=== PATIENT | male | born 1995 | race Two or more races ===

== ENCOUNTER 2025-11-02 09:50 | Inpatient (IN) | payer OTHER ==
[~2025-11-02] VITALS: Ht 177.8 cm; Wt 94.5 kg
[2025-11-02 10:46] VITALS: PULSE 130; RESP 15; O2SAT 95
--- NOTE | 2025-11-02 10:58 | ED.PDOC ---
Eye-HPI HPI Comments 30 y.o male presents to the ED for a chief complaint of a sore throat associated with SOB and hemoptysis that started last night. Patient woke up this morning with worsening SOB. He denies any difficulty swallowing, nausea, vomiting, or chills. He presents with a fever of 101 upon ED arrival. Chief Complaint: Sore Throat Time Seen by MD: 10:36 Reviewed Notes: Nurses Notes, Medications, Allergies Allergies: Coded Allergies: NO KNOWN ALLERGIES (Unverified , 11/02/25) Information Source: Patient Mode of Arrival: Ambulatory Timing: Days (1) Duration: Since onset Quality: Pain, Red Mouth: Swelling, Red Associated signs and symptoms: Sore Throat Past Medical History PAST MEDICAL HISTORY: Denies Surgical History: Denies all surgeries Family History Family History: Reviewed,noncontributory to illness, No family hx of Cancer, No family hx of DM, No family hx of Heart naresh, No family hx of HTN, No family hx ofKidney naresh, No family hx of Liver naresh, No family hx of Lung naresh, No family hx of Stroke Social History Smoker: Non-Smoker Alcohol: Denies ETOH Use Drugs: Denies Drug Use Lives In: Home Constitutional: denies: chills, diaphoresis, fatigue, fever, malaise, sweats, weakness, others EENTM: reports: throat pain; denies: blurred vision, double vision, ear bleeding, ear discharge, ear drainage, ear pain, ear ringing, eye pain, eye redness, hearing loss, mouth pain, mouth swelling, nasal discharge, nose bleeding, nose congestion, nose pain, photophobia, tearing, throat swelling, voice changes, others Respiratory: reports: hemoptysis, SOB at rest, shortness of breath, SOB with excertion; denies: cough, orthopnea, stridor, wheezing, others Cardiovascular: denies: chest pain, dizzy spells, diaphoresis, Dyspnea on exertion, edema, irregular heart beat, left arm pain, lightheadedness, palpitations, PND, syncope, others Gastrointestinal: denies: abdomen distended, abdominal pain, blood streaked bowels, constipated, diarrhea, dysphagia, difficulty swallowing, hematemesis, melena, nausea, poor appetite, poor fluid intake, rectal bleeding, rectal pain, vomiting, others Genitourinary: denies: burning, dysuria, flank pain, frequency, hematuria, incontinence, penile discharge, penile sore, pain, testicle pain, testicle swelling, urgency, others Neurological: denies: dizziness, fainting, headache, left sided numbness, left sided weakness, numbness, paresthesia, pre-existing deficit, right sided numbness, right sided weakness, seizure, speech problems, tingling, tremors, weakness, others Musculoskeletal: denies: back pain, gout, joint pain, joint swelling, muscle pain, muscle stiffness, neck pain, others Integumetry: denies: bruises, change in color, change in hair/nails, dryness, laceration, lesions, lumps, rash, wounds, others Allergic/Immunocompromised: denies: Difficulty Healing, Frequent Infections, Hives, Itching, others Hematologic/Lymphatic: denies: anemia, blood clots, easy bleeding, easy bruising, swollen glands, others Endocrine: denies: excessive hunger, excessive sweating, excessive thirst, excessive urination, flushing, intolerance to cold, intolerance to heat, unexplained weight gain, unexplained weight loss, others Psychiatric: denies: anxiety, bipolar disorder, depression, hopeless, panic disorder, schizophrenia, sleepless, suicidal, others All Other Systems: Reviewed and Negative Physical Exam General Appearance: Moderate Distress HEENT: Pharyngeal Erythema, Tonsillar Exudate Neck: Full Range of Motion, Non-Tender, Normal, Normal Inspection Respiratory: Chest Non-Tender, Lungs Clear, No Accessory Muscle Use, No Respiratory Distress, Normal Breath Sounds Cardiovascular: Tachycardia Breast Exam: Deferred Gastrointestinal: No Organomegaly, Non Tender, No Pulsatile Mass, Normal Bowel Sounds, Soft Genitalia: Deferred Pelvic: Deferred Rectal: Deferred Extremities: No calf tenderness, Normal capillary refill, Normal inspection, Normal range of motion, Non-tender, No pedal edema Musculoskeletal : Apperance: Normal Neurologic: Alert, 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 Was a procedure done?: No EENT DIFF Eye: N/A Sore Throat: Fab's Angina, Peritonsillar Abscess, Peritonsillar Cellulitis, Pharyngitis, Streptococcal, Viral Pharyngitis X-Ray, Labs, Meds, VS Vital Signs Date Time Temp Pulse Resp B/P (MAP) Pulse Ox O2 Delivery O2 Flow Rate FiO2 11/02/25 10:46 130 15 95 Nasal Cannula* 2 28 11/02/25 10:43 99.5 130 15 129/74 (92) 95 99.5 11/02/25 09:51 101.2 134 20 145/92 94 101.2 Lab Test 11/02/25 10:41 Range/Units White Blood Count 20.4 H 4.4-10.8 10^3/uL Red Blood Count 5.13 4.5-5.90 10^6/uL Hemoglobin 14.5 13.5-17.5 g/dL Hematocrit 43.1 41.0-53.0 % Mean Corpuscular Volume 84.0 80.0-100.0 fL Mean Corpuscular Hemoglobin 28.3 28.0-32.0 pg Mean Corpuscular Hemoglobin Concent 33.7 32.0-36.0 g/dL Red Cell Distribution Width 14.0 11.8-14.3 % Platelet Count 316 140-450 10^3/uL Mean Platelet Volume 8.4 6.9-10.8 fL Neutrophils (%) (Auto) 85.9 H 37.0-80.0 % Lymphocytes (%) (Auto) 6.7 L 10.0-50.0 % Monocytes (%) (Auto) 6.9 0.0-12.0 % Eosinophils (%) (Auto) 0.4 0.0-7.0 % Basophils (%) (Auto) 0.1 0.0-2.0 % Neutrophils # (Auto) 17.5 H 1.6-8.6 10 ^3/uL Lymphocytes # (Auto) 1.4 0.4-5.4 10 ^3/uL Monocytes # (Auto) 1.4 H 0-1.3 10 ^3/uL Eosinophils # (Auto) 0.1 0-0.8 10 ^3/uL Basophils # (Auto) 0 0-0.2 10 ^3/uL Nucleated Red Blood Cells 0.0 % Lactic Acid Level 1.5 0.4-2.0 mmol/L Current Medications Medications (Trade) Dose Ordered Sig/Jeannine Route Start Time Stop Time Status Last Admin Sodium Chloride 1,000 ml @ 1,000 mls/hr Q1H ONCE IV 11/02/25 11:00 11/02/25 11:59 11/02/25 11:16 Patient alert. Came in because of sore throat. On examination tonsils enlarged red. Vitals stable. Sepsis protocol. Establish intravenous access. Was given Rocephin. Was given clindamycin. Explained to the patient. Continue monitoring. Time of 1ST Reevaluation: 10:52 Reevaluation 1ST: Unchanged Patient Education/Counseling: Diagnosis, Treatment, Prognosis Family Education/Counseling: No Family Present SEPSIS Sepsis Screen Date sepsis recognized/suspect: Nov 02, 2025 Time Sepsis recognized/suspect: 1037 Recent Procedure: No On Antibiotic Therapy: No Respiratory Rate >20: No Heart Rate >90: Yes Temp<36 C (96.8 F) or >38.3 C: No SBP <90 or MAP <65 mmHG: No New Acute Mental Status Change: No Is the patient on CPAP, BIPAP,: No Physician Orders Rapid Strep Screen - Throat (11/02/25 10:21) Covid19 Antigen Yumiko (11/02/25 ) Rapid Influenza A&B (11/02/25 10:26) Blood Culture (11/02/25 10:41) Sepsis Initial Assessment ONCE (11/02/25 10:41) Sepsis Reassessment After Flui (11/02/25 10:42) Initiate Sepsis Protocol (11/02/25 10:41) Clindamycin 600mg Iv (Cleocin Iv) (11/02/25 11:00) Sodium Chloride 0.9% (11/02/25 11:00) Sodium Chloride 0.9% (11/02/25 11:00) Comprehensive Metabolic Panel (11/02/25 10:59) Chest Portable (11/02/25 11:42) Basic Metabolic Panel (11/02/25 11:44) Vital Signs Date Time Temp Pulse Resp B/P (MAP) Pulse Ox O2 Delivery O2 Flow Rate FiO2 11/02/25 10:46 130 15 95 Nasal Cannula* 2 28 11/02/25 10:43 99.5 130 15 129/74 (92) 95 99.5 11/02/25 09:51 101.2 134 20 145/92 94 101.2 Laboratory Tests Test 11/02/25 10:41 Lactic Acid Level 1.5 mmol/L (0.4-2.0) White Blood Count 20.4 10^3/uL (4.4-10.8) H Medications Medications Dose Ordered Sig/Jeannine Route Start Time Stop Time Status Last Admin Dose Admin Sodium Chloride 1,000 ml @ 1,000 mls/hr Q1H ONCE IV 11/02/25 11:00 11/02/25 11:59 11/02/25 11:16 Departure 1 Departure Time of Disposition: 11:55 Impression: Primary Impression: Sepsis, unspecified organism Qualified Codes: A41.9 - Sepsis, unspecified organism Additional Impression: Acute tonsillitis Qualified Codes: J03.90 - Acute tonsillitis, unspecified Disposition: 09 ADMITTED INPATIENT Admit to: Med Surg Condition: Guarded Critical Care Note Critical Care Time?: No Stability Stability form required: No I personally scribed for TERA RUSS MD ([email or web address]) on 11/02/25 at 10:58. Electronically submitted by Laura Burks ([facility]). TERA RUSS MD Nov 02, 2025 10:58
[2025-11-02 11:11] LABS: Hematocrit 43.1 % (41.0-53.0); Hemoglobin 14.5 g/dL (13.5-17.5); Mean Corpuscular Hemoglobin 28.3 pg (28.0-32.0); Mean Corpuscular Volume 84.0 fL (80.0-100.0); Nucleated Red Blood Cells % 0.0 %
[2025-11-02] MEDS: SODIUM CHLORIDE 0.9% 1,000 ML IV ONE ×2 (11:16→14:43)
--- NOTE | 2025-11-02 12:31 | DVH ---
CHEST RADIOGRAPH INDICATION: sob TECHNIQUE: Single frontal view of the chest was obtained COMPARISON: None FINDINGS: Lines and Tubes: None Lungs: No focal consolidation. Pleura: No effusion. No pneumothorax. Cardiomediastinal contours: Unremarkable Bones: No acute osseous abnormality. IMPRESSION: 1. No acute cardiopulmonary disease.
[2025-11-02 12:38] LABS: Alanine Aminotransferase 59 U/L (7-40); Albumin 4.6 g/dL (3.2-4.8); Alkaline Phosphatase 151 U/L (46-116); Anion Gap 12 (5-15); BUN/Creatinine Ratio 16.7 (10.0-20.0); Bilirubin, Total 0.4 mg/dL (0.2-1.0); Blood Urea Nitrogen 13 mg/dL (9-23); Calcium 9.5 mg/dL (8.7-10.4); Carbon Dioxide 25 mmol/L (20-31); Chloride 102 mmol/L (98-107); Glucose 114 mg/dL (74-106); Potassium 4.2 mmol/L (3.5-5.1); Sodium 139 mmol/L (136-145); Total Protein 7.5 g/dL (5.7-8.2)
[2025-11-02 13:09] LABS: COVID19 ANTIGEN SOFIA FIA POSITIVE (NEGATIVE)
[2025-11-02 13:13] LABS: Rapid Strep A Screen-Throat Positive
--- NOTE | 2025-11-02 13:44 | DVH ---
Accession Number: [id number] CLINICAL HISTORY: Rule out retropharyngeal abscess COMPARISON: None TECHNIQUE: After the intravenous administration of intravenous contrast, multi- slice CT scan of the neck was performed without complication. Radiation Dose Information: CT Dose: CTDI volume is 26.5 mGy. Dose-length product is 1.78 mGy*cm FINDINGS: The glottis is closed limiting evaluation. There is prominence of the palatine tonsils with palatine tonsils contacting medially. No peritonsillar abscess is noted. Retropharyngeal abscess is noted. The remainder of the nasopharynx, oropharynx, hypopharynx, and larynx are unremarkable. Nonspecific mild wall thickening of the proximal esophagus. Bilaterally, the parotid, submandibular, and sublingual glands are normal in their size, shape, and attenuation without evidence of calcification. The visualized oral tongue, tongue base, and floor of mouth regions demonstrate no obvious mass or abnormal enhancement. Prominent level 2/3 lymph nodes which are most likely reactive. The thyroid gland is normal in size, shape, and attenuation without evidence of calcification. IMPRESSION: Prominence of the palatine tonsils with contact of the palatine tonsils medially. Correlate for tonsillitis. No peritonsillar abscess is noted. Prominent cervical lymph nodes which are most likely reactive.
[2025-11-02] MEDS ORDERED: REMDESIVIR PER PHARMACY 0 ML IV SCH ×2 (14:00→14:15)
[2025-11-02] MEDS: SODIUM CHLORIDE 0.9% 1,000 ML IV SCH (14:00)
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
[2025-11-02] MEDS ORDERED: ACETAMINOPHEN 325 MG TAB PO PRN (14:15)
[2025-11-02 14:33] LABS: Base Excess 0.8 mmol/L (-2.0-3.0)
[2025-11-02] MEDS: ACETAMINOPHEN 325 MG TAB PO ONE (14:45)
[2025-11-02 14:47] LABS: Magnesium 1.9 mg/dL (1.6-2.6); Triglycerides 145.0 mg/dL (< 150)
[2025-11-02 14:49] LABS: Cholesterol 198.0 mg/dL (< 200)
[2025-11-02 14:50] LABS: HDL Cholesterol 39.0 mg/dL (40-59)
[2025-11-02] MEDS: PENICILLIN V POTASSIUM 250 MG TAB PO SCH (16:00)
[2025-11-02] MEDS: CLINDAMYCIN 600MG IV 50 ML IV ONE (16:00)
[2025-11-02] MEDS: MORPHINE SULFATE 4 MG/ML SYR/VIAL IV PRN (17:14)
[2025-11-02] MEDS: ONDANSETRON HCL 4 MG/2 ML VIAL IV PRN (17:15)
[2025-11-02] MEDS: REMDESIVIR 200mg in NS 210mL LOADING DOSE ADULT IV ONE (17:23)
[2025-11-02 18:14] VITALS: PULSE 108; RESP 24; O2SAT 97
[2025-11-02] MEDS ORDERED: DEXTROSE (50%) 50ML SYRG IV PRN ×2 (20:15→21:00)
[2025-11-02 22:30] VITALS: BP 117/70; PULSE 97; RESP 18; TEMP 100.1; O2SAT 98
[2025-11-02] MEDS: InsuLIN REG 1unit/0.01ml Soln (100units/ml) SC SCH (23:52)
[2025-11-02] MEDS: ACCU-CHEK COMFORT CURVE STRIP VI SCH (23:52)
[2025-11-03] VITALS (9 sets, daily range): BP systolic 112–136; BP diastolic 62–84; PULSE 70–114; RESP 17–20; TEMP 97.6–98.5; O2SAT 91–98
[2025-11-03] MEDS ORDERED: ACCU-CHEK COMFORT CURVE STRIP VI SCH
[2025-11-03] MEDS ORDERED: InsuLIN REG 1unit/0.01ml Soln (100units/ml) SC SCH
--- NOTE | 2025-11-03 02:44 | DVHSR ---
APPROVED REPORT EXAM: LIMITED Two-dimensional and M-mode echocardiogram with Doppler and color Doppler. Blood Pressure: 129/74 mmHg INDICATION Sepsis RISK FACTORS Height: 5' 10", Weight: 209 DIMENSIONS LVDd 4.4 (3.8-5.7cm) LA (2D) 4.0 (1.9-4.0cm) Aortic Root 3.0 (2.0-3.7cm) LVDs 3.1 (2.5-4.0cm) LA (MM) (1.9-4.0cm) Aortic Cusp Exc 1.7 (1.5-2.0cm) EF (%) 58.0 (55-70%) Rt. Atrium 3.9 (1.9-4.0cm) Asc. Aorta cm IVSd 0.8 (0.7-1.1cm) RV (D) (1.8-2.4cm) PWd 0.8 (0.7-1.1cm) Mitral Valve Mitral Mitral Stenosis E wave 0.80m/s MV Mean GR. mmHg A wave 0.80m/s MV Peak GR. mmHg E/A ratio 1.0 2D MVA cm2 Aortic Valve Aortic Valve Aortic Stenosis V1 1.20m/s AO Mean GR. 4mmHg V2 1.30m/s AO Peak GR. 7mmHg LVOT Diameter 2.1 (1.8-2.4cm) Doppler MARCIA 3.20cm2 Pulmonic Valve V2 0.90m/s Other Information Quality : Technically Limited Rhythm : Technically limited study due to body habitus, patient is SOB and sitting up. Conclusion MODERATELY DILATED RV AND RA DYSKINESIS OF IVS LV EF IS 65% NORMAL VALVES NO EFFUSION
[2025-11-03 07:27] LABS: Hematocrit 40.2 % (41.0-53.0); Hemoglobin 13.5 g/dL (13.5-17.5); Mean Corpuscular Hemoglobin 28.3 pg (28.0-32.0); Mean Corpuscular Volume 84.3 fL (80.0-100.0); Nucleated Red Blood Cells % 0.0 %
[2025-11-03 07:33] LABS: Albumin 4.2 g/dL (3.2-4.8); Anion Gap 11 (5-15); BUN/Creatinine Ratio 11.1 (10.0-20.0); Bilirubin, Total 0.5 mg/dL (0.2-1.0); Calcium 9.1 mg/dL (8.7-10.4); Carbon Dioxide 27 mmol/L (20-31); Chloride 100 mmol/L (98-107); Glucose 85 mg/dL (74-106); Potassium 3.6 mmol/L (3.5-5.1); Sodium 138 mmol/L (136-145); Total Protein 7.1 g/dL (5.7-8.2)
[2025-11-03 07:40] LABS: Alanine Aminotransferase 45 U/L (7-40); Alkaline Phosphatase 143 U/L (46-116); Blood Urea Nitrogen 8 mg/dL (9-23)
[2025-11-03] MEDS: ENOXAPARIN SOD 40 MG/0.4 ML SYRINGE SC SCH (10:34)
[2025-11-03] MEDS: AMOXICILLIN TRIHYDRATE 250 MG CAP PO SCH ×2 (10:35→21:09)
[2025-11-03] MEDS: REMDESIVIR 100mg in NS 230mL (3 DAY REGIMEN) IV SCH (15:06)
--- NOTE | 2025-11-03 18:32 | DVHPN2 ---
Subjective Clinically stable. Family is bedside. Feeling better. Changes from previous H/P or p: No Changes Objective Vitals Vital Signs Date Time Temp Pulse Resp B/P (MAP) Pulse Ox O2 Delivery O2 Flow Rate FiO2 11/03/25 16:55 98.5 93 20 122/84 (97) 92 98.5 11/03/25 08:30 Room Air* 0 21 Intake/Output Intake and Output 11/03/25 06:59 Intake Total 200 ml Balance 200 ml Intake Oral 200 ml # Voids 3 Exam Alert awake oriented to place and person. Comfortable without distress. HEENT neck supple no JVD. Heart regular rate and rhythm. Lungs fair air movement without wheezing. Abdomen soft positive bowel sounds nontender, extremities no edema positive pulses. Medications Current Medications Medications Dose Ordered Sig/Jeannine Route Start Time Stop Time Status Last Admin Dose Admin Sodium Chloride 1,000 ml @ 100 mls/hr Q10H IV 11/02/25 14:00 11/03/25 13:27 100 MLS/HR Acetaminophen 325 mg Q4HP PRN PO 11/02/25 14:15 Ondansetron HCl 4 mg Q4HP PRN IV 11/02/25 14:15 11/02/25 17:15 4 MG Morphine Sulfate 2 mg Q4HPRN PRN IV 11/02/25 14:30 11/02/25 17:14 2 MG Enoxaparin Sodium 40 mg DAILY SC 11/03/25 10:00 11/03/25 10:34 40 MG Remdesivir 0 ml @ 0 mls/hr PER PHARMACY IV 11/02/25 14:15 11/04/25 14:01 Remdesivir 100 mg/ Sodium Chloride 250 ml @ 250 mls/hr DAILY@1500 IV 11/03/25 15:00 11/04/25 15:59 11/03/25 15:06 250 MLS/HR Amoxicillin 500 mg BID PO 11/03/25 10:00 11/03/25 10:35 500 MG Laboratory Results Laboratory Tests 11/03/25 05:00 Chemistry Test 11/03/25 05:00 Albumin 4.2 g/dL (3.2-4.8) Calcium Level 9.1 mg/dL (8.7-10.4) Total Protein 7.1 g/dL (5.7-8.2) LFT Test 11/03/25 05:00 Alanine Aminotransferase (ALT) 45 U/L (7-40) H Alkaline Phosphatase 143 U/L (46-116) H Aspartate Amino Transferase (AST) 21 U/L (13-40) Total Bilirubin 0.5 mg/dL (0.2-1.0) Microbiology Microbiology Date/Time Source Procedure Growth Status 11/02/25 10:41 Blood Blood Culture - Preliminary NO GROWTH AFTER 24 HOURS OF INCUBATION. Resulted Labs and/or images reviewed: Labs reviewed by me Assessment/Plan Assessment/Plan Continue oral antibiotic and remdesivir. We will have Infectious Disease consultation. Follow the leukocytosis. Otherwise continue rest of supportive care and treatment. DVT GI prophylaxis. Further clinical management per clinical course. Discussed with the patient/family and nurse at bedside regarding care plan. Plan discussed with: Son, Other My Orders Orders - KRISTEL ARCINIEGA MD Procedure Category Date Status Time Regular Diet DIET 11/03/25 Transmitted Dinner * Infectious [facility]- Dr. CONS 11/03/25 Transmitted K Tom 18:30 Complete Blood Count LAB 11/04/25 Verified 04:00 Problem List: (1) COVID-19 virus infection (2) Acute tonsillitis Date of Service: Nov 03, 2025 Billing Provider: KRISTEL ARCINIEGA MD Common Visit Codes: [id number] INP/OBS CARE(MOD) KRISTEL ARCINIEGA MD Nov 03, 2025 18:32
[2025-11-04] VITALS (8 sets, daily range): BP systolic 103–124; BP diastolic 53–82; PULSE 57–77; RESP 16–20; TEMP 97.3–98.4; O2SAT 93–96
[2025-11-04 07:09] LABS: Hematocrit 40.1 % (41.0-53.0); Hemoglobin 13.7 g/dL (13.5-17.5); Mean Corpuscular Hemoglobin 29.0 pg (28.0-32.0); Mean Corpuscular Volume 84.7 fL (80.0-100.0); Nucleated Red Blood Cells % 0.0 %
[2025-11-04] MEDS ORDERED: HYDROmorphone HCL 2 MG/ML VL/or syr IV PRN (09:45)
[2025-11-04] MEDS ORDERED: MORPHINE SULFATE 4 MG/ML SYR/VIAL IV PRN (09:45)
[2025-11-04 14:20] LABS: Hepatitis B Surface Antigen Negative (Negative)
[2025-11-04 14:35] LABS: Hepatitis C Antibody Negative (Negative)
--- NOTE | 2025-11-04 16:41 | DVHPN2 ---
Subjective Patient is complaining of sore throat. Currently on remdesivir. 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 Medications Current Medications Medications Dose Ordered Sig/Jeannine Route Start Time Stop Time Status Last Admin Dose Admin Sodium Chloride 1,000 ml @ 100 mls/hr Q10H IV 11/02/25 14:00 11/03/25 13:27 100 MLS/HR Acetaminophen 325 mg Q4HP PRN PO 11/02/25 14:15 Ondansetron HCl 4 mg Q4HP PRN IV 11/02/25 14:15 11/02/25 17:15 4 MG Enoxaparin Sodium 40 mg DAILY SC 11/03/25 10:00 11/04/25 10:00 40 MG Amoxicillin 500 mg BID PO 11/03/25 22:00 11/04/25 10:00 500 MG Morphine Sulfate 2 mg Q4HPRN PRN IV 11/04/25 09:45 Laboratory Results Laboratory Tests 11/03/25 05:00 11/04/25 06:25 Microbiology Microbiology Date/Time Source Procedure Growth Status 11/02/25 10:41 Blood Blood Culture - Preliminary NO GROWTH AFTER 48 HOURS OF INCUBATION. Resulted Assessment/Plan Assessment/Plan 30-year-old young male with a no significant past medical history presented to the hospital with a sore throat found to have 1. Sepsis secondary to COVID-19 pneumonia as well as streptococcal pharyngitis 2. COVID-19 pneumonia currently on remdesivir day three 3. Streptococcal pharyngitis 4. Morbid obesity classI -continue remdesivir continue IV antibiotics discharge plan. Plan discussed with: Patient Problem List: (1) Sepsis, unspecified organism (2) COVID-19 virus infection Date of Service: Nov 04, 2025 Billing Provider: MOJGAN HAM MD Common Visit Codes: [id number] INP/OBS CARE(HIGH) MOJGAN HAM MD Nov 04, 2025 16:41
--- NOTE | 2025-11-04 23:24 | DVHINCON2 ---
Date of service: Nov 04, 2025 Family History: Patient reports no known family medical history. Allergies: Coded Allergies: NO KNOWN ALLERGIES (Unverified , 11/02/25) Home Meds No Active Prescriptions or Reported Meds Current Medications Current Medications Medications (Trade) Dose Ordered Sig/Jeannine Route PRN Reason Start Time Stop Time Status Last Admin Hydromorphone HCl (Dilaudid Injection) 0.25 mg Q4HPRN PRN IV SEVERE PAIN (7-10 PAIN SCALE) 11/04/25 09:45 11/04/25 09:40 DC Morphine Sulfate 2 mg Q4HPRN PRN IV SEVERE PAIN (7-10 PAIN SCALE) 11/04/25 09:45 Vital Signs Vital Signs Date Time Temp Pulse Resp B/P (MAP) Pulse Ox O2 Delivery O2 Flow Rate FiO2 11/04/25 21:00 98.4 61 16 110/62 (78) 96 98.4 11/04/25 20:00 Room Air* 0 21 Labs/Diagnostic Data Labs Test 11/04/25 06:25 11/03/25 12:03 11/03/25 05:00 11/02/25 14:24 Range/Units White Blood Count 9.9 # 4.4-10.8 10^3/uL Red Blood Count 4.74 4.5-5.90 10^6/uL Hemoglobin 13.7 13.5-17.5 g/dL Hematocrit 40.1 L 41.0-53.0 % Mean Corpuscular Volume 84.7 80.0-100.0 fL Mean Corpuscular Hemoglobin 29.0 28.0-32.0 pg Mean Corpuscular Hemoglobin Concent 34.3 32.0-36.0 g/dL Red Cell Distribution Width 13.9 11.8-14.3 % Platelet Count 336 140-450 10^3/uL Mean Platelet Volume 8.2 6.9-10.8 fL Neutrophils (%) (Auto) 63.6 37.0-80.0 % Lymphocytes (%) (Auto) 22.4 10.0-50.0 % Monocytes (%) (Auto) 11.3 0.0-12.0 % Eosinophils (%) (Auto) 2.6 0.0-7.0 % Basophils (%) (Auto) 0.1 0.0-2.0 % Neutrophils # (Auto) 6.3 1.6-8.6 10 ^3/uL Lymphocytes # (Auto) 2.2 0.4-5.4 10 ^3/uL Monocytes # (Auto) 1.1 0-1.3 10 ^3/uL Eosinophils # (Auto) 0.3 0-0.8 10 ^3/uL Basophils # (Auto) 0 0-0.2 10 ^3/uL Nucleated Red Blood Cells 0.0 % POC Glucose 104 70-106 mg/dl Sodium Level 138 136-145 mmol/L Potassium Level 3.6 3.5-5.1 mmol/L Chloride Level 100 98-107 mmol/L Carbon Dioxide Level 27 20-31 mmol/L Anion Gap 11 5-15 Blood Urea Nitrogen 8 L 9-23 mg/dL Creatinine 0.72 0.700-1.30 mg/dL Glomerular Filtration Rate Calc 127 >90 mL/min BUN/Creatinine Ratio 11.1 10.0-20.0 Serum Glucose 85 74-106 mg/dL Calcium Level 9.1 8.7-10.4 mg/dL Total Bilirubin 0.5 0.2-1.0 mg/dL Aspartate Amino Transferase (AST) 21 13-40 U/L Alanine Aminotransferase (ALT) 45 H 7-40 U/L Alkaline Phosphatase 143 H 46-116 U/L Total Protein 7.1 5.7-8.2 g/dL Albumin 4.2 3.2-4.8 g/dL Blood Gas Specimen Type Arterial Blood Gas Sample Site Right radial Blood Gas Patient Temperature 37.0 Arterial Blood Date Drawn [id number] Arterial Blood pH 7.394 7.350-7.450 Arterial Blood Partial Pressure CO2 43.5 35.0-48.0 mmHg Arterial Blood Partial Pressure O2 79.3 L 83.0-108.0 mmHg Arterial Blood HCO3 26.0 21.0-28.0 mmol/L Arterial Blood Oxygen Saturation 95.3 94.0-98.0 % Arterial Blood Base Excess 0.8 -2.0-3.0 mmol/L Arterial Blood Oxyhemoglobin 93.2 L 94.0-98.0 % Arterial Blood Carboxyhemoglobin 1.6 H 0.5-1.5 % Arterial Blood Methemoglobin 0.6 0.0-1.5 % Arterial Blood Deoxyhemoglobin 4.6 0.0-5.0 % Ge Test Yes Blood Gas Total Hemoglobin 15.20 13.5-17.5 g/dL Blood Gas Modality Nasal cannula FiO2 % 28.0 Test 11/02/25 14:23 11/02/25 12:12 11/02/25 10:41 Range/Units HIV (1&2) Antibody Negative Negative Influenza Type A Antigen Negative Negative Influenza Type B Antigen Negative Negative SARS-CoV-2 Antigen (Rapid) Positive *A NEGATIVE Group A Streptococcus Rapid Positive Hemoglobin A1c 5.8 H <5.7 % A1C Lactic Acid Level 1.5 0.4-2.0 mmol/L Phosphorus Level 2.7 2.4-5.1 mg/dL Magnesium Level 1.9 1.6-2.6 mg/dL Triglycerides Level 145 < 150 mg/dL Cholesterol Level 198 < 200 mg/dL LDL Cholesterol 144 H < 100 mg/dL HDL Cholesterol 39 L 40-59 mg/dL Vitamin B12 Level 401 211-911 pg/mL Vitamin D 25-Hydroxy 13.1 L 30.0-100 ng/mL Thyroid Stimulating Hormone (TSH) 0.83 0.55-4.78 uIU/mL Treponema pallidum Antibody Non-reactive Negative Hepatitis A IgM Antibody Negative Hepatitis B Surface Antigen Negative Negative Hepatitis B Core IgM Antibody Negative Negative Hepatitis C Antibody Negative Negative Microbiology Date/Time Source Procedure Growth Status 11/02/25 10:41 Blood Blood Culture - Preliminary NO GROWTH AFTER 48 HOURS OF INCUBATION. Resulted Problems(with codes): (1) Acute tonsillitis (2) Sepsis, unspecified organism (3) COVID-19 virus infection Plan/Recommendation ASSESSMENT AND PLAN: ID Problem List: \-- COVID-19 pneumonia \-- Group A streptococcal pharyngitis/tonsillitis \-- Leukocytosis, improving \-- Shortness of breath and hemoptysis Assessment This is a 30 y.o. male with past medical history of ankle surgery after traumatic injury (puncture wound), who presents with sore throat, shortness of breath, dysphagia, and one day of hemoptysis. No chronic primary medical history reported. On presentation he is tachycardic and diaphoretic. Temperature 99.5F, pulse 130, respiratory rate 15, blood pressure 129/74, on 2 L nasal cannula oxygen initially, now doing well on room air. Exam notable for tonsillar exudates with bilaterally enlarged tonsils. Laboratory evaluation shows leukocytosis with WBC 20.4 on admission, improving to 17.0 over the last 24 hours; hemoglobin 14.5, platelets 316. Basic metabolic profile with sodium 139, BUN 13, creatinine 0.78. Lactic acid 1.5. Total bilirubin 0.4, AST 24, ALT 59, alkaline phosphatase 151. Infectious workup: Influenza A and B negative, HIV negative, RPR negative. COVID-19 PCR positive. Group A streptococcal testing positive. Blood cultures with no growth to date. Imaging: CT soft tissue neck with prominence of the palatine tonsils in contact, consistent with tonsillitis without tonsillar abscess; cervical lymph nodes most likely reactive. Chest X-ray shows no acute cardiopulmonary disease. Overall, findings are consistent with COVID-19 pneumonia with superimposed group A streptococcal pharyngotonsillitis, with improving leukocytosis under current therapy. Plan: \-- COVID-19 pneumonia Symptoms have been present for over two weeks and the patient does not meet standard window criteria for COVID-19 therapies such as Paxlovid. However, given the positive antibody, may consider a 5-day course of Paxlovid to treat any residual COVID-19 disease. Continue remdesivir while inpatient. Monitor respiratory status; patient currently doing well on room air. \-- Group A streptococcal pharyngitis/tonsillitis Continue IV ampicillin while inpatient. Standard treatment for group A streptococcal pharyngitis/tonsillitis is penicillin 500 mg three times daily for 10 days. If patient continues to improve, may switch from IV ampicillin to oral ampicillin and continue for a total 10-day course upon discharge (equivalent dosing as above). Given the rapid onset of antibiotic use within 12 weeks of group A strep infection, do not suspect that the patient will develop sequelae of group A strep infection. \-- Follow-up / potential sequelae of group A strep infection Recommend follow-up in approximately 1 month to: Assess for any residual pharyngitis, tonsillitis, or tonsillar abscess. Consider additional antibiotic therapy if persistent or recurrent symptoms. Evaluate for secondary sequelae of group A streptococcal tonsillitis, including rheumatic fever and tox check. \-- Leukocytosis / sepsis monitoring WBC improved from 20.4 to 17.0 over the last 24 hours. Continue to trend CBC daily. Blood cultures remain no growth to date; continue to monitor. \-- Sexually transmitted infection evaluation HIV negative, RPR negative. No current concern for STDs based on history (one partner, no specific STD concern expressed). Assessment and plan was discussed with the patient as written above. Plan is subject to change pending incorporation of new incoming information/diagnostics. Updates may be added as addendum at the bottom (OR TOP) of this note. Electronically signed by: Mateusz Santos MD, 11/05/2025 History: The patient's chart and medications were reviewed in detail and the patient was seen and examined. History obtained from: patient. Alexis Marinelli is a 30 y.o. male with past medical history significant for ankle surgery after traumatic injury (puncture wound) who presents with sore throat, shortness of breath, dysphagia, and one day of hemoptysis. He reports that similar symptoms occurred about two weeks ago, with subsequent resolution of symptoms except for persistent dysphagia. Current episode of shortness of breath and hemoptysis has been ongoing for one day. He denies primary chronic medical conditions. He lives with his family and . He reports one sexual partner and no concern for sexually transmitted diseases. He denies known sick contacts and denies recent travel. He denies any allergies. He does not take any pain medications on admission. Review of Systems: Pertinent positives and negatives as documented in the HPI include: -HEENT: Sore throat, dysphagia. -RESPIRATORY: Shortness of breath, hemoptysis. -INFECTIOUS/EXPOSURE: No sick contacts. No recent travel. No concern for STDs. Past Medical History: -History of traumatic injury with puncture wound. -No primary chronic medical history reported. Past Surgical History: -Ankle surgery following traumatic injury with puncture wound. Home Medications: -Does not take any pain medications on admission. Allergies: -Denies any allergies. Social History: -Lives with family and . -Reports one sexual partner; no concern for STDs. -No known sick contacts. -No recent travel. Objective: Vital Signs on Arrival: -Temp: 99.5 F -BP: 129/74 mmHg -Pulse: 130 bpm -Resp: 15 breaths/min -Oxygen: 2 L/min nasal cannula on arrival (now doing well on room air) Physical Exam: General: NAD, diaphoretic. Neck: Supple. No masses. HEENT: PERRL. Normal lids and conjunctiva. Moist mucous membranes. Oropharynx with tonsillar exudate and bilaterally enlarged tonsils. Normal appearance of the external aspects of the nose and ears. Heart: Regular rhythm, tachycardic. No murmur. No lower extremity edema. Lungs: Normal respiratory effort. Clear to auscultation bilaterally. No wheezes. No crackles. Abdomen: Soft. Non-tender. Non-distended. No masses or abdominal hernia. Msk: No digital cyanosis. Normal strength and tone in all 4 limbs. Skin: Diaphoretic, no rashes. Neuro: Alert. No facial droop or slurred speech. Extra-ocular movements intact. Sensation intact to soft touch in all 4 limbs. Psych: Appropriate mood. Full affect. Oriented to person, place, time, and situation. Diagnostic Studies: Available diagnostic studies were reviewed personally. Significant relevant results and findings are outlined below and/or addressed in the Assessment and Plan above. -Laboratory Data: -WBC 20.4 ? 17.0 (improving over last 24 hours) -Hemoglobin 14.5 g/dL -Platelets 316 K/L -Sodium 139 mmol/L -BUN 13 mg/dL -Creatinine 0.78 mg/dL -Lactic acid 1.5 mmol/L -Total bilirubin 0.4 mg/dL -AST 24 U/L -ALT 59 U/L -Alkaline phosphatase 151 U/L -HIV test: negative -RPR: negative -Blood cultures: no growth to date -Microbiology/Virology: -Influenza A: negative -Influenza B: negative -COVID-19: positive -Group A streptococcal test: positive Pertinent Imaging: -CT soft tissue neck: -Prominence of the palatine tonsils with contact. -Findings consistent with tonsillitis without tonsillar abscess. -Cervical lymph nodes most likely reactive. -Chest X-ray: -No acute cardiopulmonary disease. Plan discussed with: Patient MATEUSZ SANTOS MD Nov 04, 2025 23:24
[2025-11-05 01:00] VITALS: BP 128/87; PULSE 74; RESP 16; TEMP 98.2; O2SAT 97
[2025-11-05 05:08] VITALS: BP 116/75; PULSE 72; RESP 16; TEMP 98.3; O2SAT 95
[2025-11-05 08:00] VITALS: PULSE 61; RESP 18
--- NOTE | 2025-11-05 18:42 | DVHDS2 ---
Discharge Summary Date of Admission Nov 02, 2025 at 14:08 Date of Discharge: Nov 05, 2025 Labs/Diagnostic Data: Laboratory Results Test 11/04/25 06:25 11/03/25 12:03 11/03/25 05:00 11/02/25 14:24 White Blood Count 9.9 10^3/uL (4.4-10.8) Red Blood Count 4.74 10^6/uL (4.5-5.90) Hemoglobin 13.7 g/dL (13.5-17.5) Hematocrit 40.1 % (41.0-53.0) Mean Corpuscular Volume 84.7 fL (80.0-100.0) Mean Corpuscular Hemoglobin 29.0 pg (28.0-32.0) Mean Corpuscular Hemoglobin Concent 34.3 g/dL (32.0-36.0) Red Cell Distribution Width 13.9 % (11.8-14.3) Platelet Count 336 10^3/uL (140-450) Mean Platelet Volume 8.2 fL (6.9-10.8) Neutrophils (%) (Auto) 63.6 % (37.0-80.0) Lymphocytes (%) (Auto) 22.4 % (10.0-50.0) Monocytes (%) (Auto) 11.3 % (0.0-12.0) Eosinophils (%) (Auto) 2.6 % (0.0-7.0) Basophils (%) (Auto) 0.1 % (0.0-2.0) Neutrophils # (Auto) 6.3 10 ^3/uL (1.6-8.6) Lymphocytes # (Auto) 2.2 10 ^3/uL (0.4-5.4) Monocytes # (Auto) 1.1 10 ^3/uL (0-1.3) Eosinophils # (Auto) 0.3 10 ^3/uL (0-0.8) Basophils # (Auto) 0 10 ^3/uL (0-0.2) Nucleated Red Blood Cells 0.0 % POC Glucose 104 mg/dl (70-106) Sodium Level 138 mmol/L (136-145) Potassium Level 3.6 mmol/L (3.5-5.1) Chloride Level 100 mmol/L (98-107) Carbon Dioxide Level 27 mmol/L (20-31) Anion Gap 11 (5-15) Blood Urea Nitrogen 8 mg/dL (9-23) Creatinine 0.72 mg/dL (0.700-1.30) Glomerular Filtration Rate Calc 127 mL/min (>90) BUN/Creatinine Ratio 11.1 (10.0-20.0) Serum Glucose 85 mg/dL (74-106) Calcium Level 9.1 mg/dL (8.7-10.4) Total Bilirubin 0.5 mg/dL (0.2-1.0) Aspartate Amino Transferase (AST) 21 U/L (13-40) Alanine Aminotransferase (ALT) 45 U/L (7-40) Alkaline Phosphatase 143 U/L (46-116) Total Protein 7.1 g/dL (5.7-8.2) Albumin 4.2 g/dL (3.2-4.8) Blood Gas Specimen Type Arterial Blood Gas Sample Site Right radial Blood Gas Patient Temperature 37.0 Arterial Blood Date Drawn [id number] Arterial Blood pH 7.394 (7.350-7.450) Arterial Blood Partial Pressure CO2 43.5 mmHg (35.0-48.0) Arterial Blood Partial Pressure O2 79.3 mmHg (83.0-108.0) Arterial Blood HCO3 26.0 mmol/L (21.0-28.0) Arterial Blood Oxygen Saturation 95.3 % (94.0-98.0) Arterial Blood Base Excess 0.8 mmol/L (-2.0-3.0) Arterial Blood Oxyhemoglobin 93.2 % (94.0-98.0) Arterial Blood Carboxyhemoglobin 1.6 % (0.5-1.5) Arterial Blood Methemoglobin 0.6 % (0.0-1.5) Arterial Blood Deoxyhemoglobin 4.6 % (0.0-5.0) Ge Test Yes Blood Gas Total Hemoglobin 15.20 g/dL (13.5-17.5) Blood Gas Modality Nasal cannula FiO2 % 28.0 Test 11/02/25 14:23 11/02/25 12:12 11/02/25 10:41 HIV (1&2) Antibody Negative (Negative) Influenza Type A Antigen Negative (Negative) Influenza Type B Antigen Negative (Negative) SARS-CoV-2 Antigen (Rapid) Positive (NEGATIVE) Group A Streptococcus Rapid Positive Hemoglobin A1c 5.8 % A1C (<5.7) Lactic Acid Level 1.5 mmol/L (0.4-2.0) Phosphorus Level 2.7 mg/dL (2.4-5.1) Magnesium Level 1.9 mg/dL (1.6-2.6) Triglycerides Level 145 mg/dL (< 150) Cholesterol Level 198 mg/dL (< 200) LDL Cholesterol 144 mg/dL (< 100) HDL Cholesterol 39 mg/dL (40-59) Vitamin B12 Level 401 pg/mL (211-911) Vitamin D 25-Hydroxy 13.1 ng/mL (30.0-100) Thyroid Stimulating Hormone (TSH) 0.83 uIU/mL (0.55-4.78) Treponema pallidum Antibody Non-reactive (Negative) Hepatitis A IgM Antibody Negative Hepatitis B Surface Antigen Negative (Negative) Hepatitis B Core IgM Antibody Negative (Negative) Hepatitis C Antibody Negative (Negative) Other Laboratory Tests 11/04/25 06:25 11/03/25 05:00 Brief Hx & Hospital Course: 30-year-old young male with a no significant past medical history presented to the hospital with a sore throat found to have sepsis secondary to COVID-19 pneumonia as well as streptococcal pharyngitis. Patient was started on remdesivir. Patient left against medical advice before completion of workup and treatment. Condition at Discharge: Undetermined Final Diagnosis/Problems List Patient left against medical advice Discharge Disposition: AMA SNF Discharge Will this Physician continue t: No Discharge Instruct/Medications No Active Prescriptions or Reported Meds Discharge Statement: "Patient was advised to return to the ER or call 911 if any headaches, dizziness, shortness of breath, chest pain, abdominal pain, bleeding, fevers, or worsening of medical condition. Patient was counseled about treatment plan, medications, possible side effects, patientverbalized understanding. All questions were answered to the best of my ability. This discharge took greater then 30 minutes in planning, reviewing documentation, counseling the patient, and discussing with other team members." ASSESSMENT ASSESSMENT Assessment Date of Service: Nov 05, 2025 Billing Provider: MOJGAN HAM MD Common Visit Codes: 79655-SFA/OBS DISCH DAY <30MIN MOJGAN HAM MD Nov 05, 2025 18:42
== END 2025-11-05 09:35 | disposition left against medical advice (07) | DRG 720 ==
LOC: ER 09:50 → OVERFLOW 14:08 → ER 14:14 → TELE-CENTR 22:10
PROVIDERS: ADMIT Internal Medicine; ATTEND Internal Medicine
PROC: XW033E5 Introduction of Remdesivir Anti-infective into Peripheral Vein, Percutaneous Approach, New Technology Group 5 (ICD-10-PCS; principal; 2025-11-02)
DX: A41.89 Other specified sepsis (principal); J96.00 Acute respiratory failure, unspecified whether with hypoxia or hypercapnia; J12.82 Pneumonia due to coronavirus disease 2019; J02.0 Streptococcal pharyngitis; E66.01 Morbid (severe) obesity due to excess calories; U07.1 COVID-19; Z53.29 Procedure and treatment not carried out because of patient's decision for other reasons; R73.03 Prediabetes; Z68.29 Body mass index [BMI] 29.0-29.9, adult
CPT/HCPCS: 36415; 36600; 70491; 71045; 80053; 80061; 80074; 82306; 82607; 82805; 82962; 83036; 83605; 83735; 84100; 84443; 85025; 86703; 86780; 87040; 87426; 87804; 87880; 93306; 96360; 97163; G0378; J2405; J3490